=== PATIENT | female | born 1995 | race Caucasian/White ===

== ENCOUNTER 2023-11-05 16:31 | Emergency (ER) | payer BC, SELFPAY ==
[2023-11-05 16:56] VITALS: BP 122/62; PULSE 120; RESP 18; TEMP 37.7; O2SAT 99
--- NOTE | 2023-11-05 17:21 | ED.URI ---
HPI - URI/Sore Throat General Chief Complaint: Upper Respiratory Infection Stated Complaint: Cold symptoms Time Seen by Provider: 11/05/23 17:12 Source: patient and RN notes reviewed Mode of arrival: ambulatory Limitations: no limitations History of Present Illness HPI Narrative: Patient presents today with a one-week history of cough with sore throat, headache, fatigue, and postnasal drip since yesterday. Currently rates her pain 6/10 and has been taking ibuprofen with some slight relief. Related Data Allergies Allergy/AdvReac Type Severity Reaction Status Date / Time No Known Allergies Allergy Verified 11/05/23 17:00 Review of Systems Review of Systems: GENERAL: Denies fever, chills, or decreased activity.+ fatigue EYES: Denies any eye discharge or redness. ENT: Denies ear pain, congestion, or rhinorrhea.+ sore throat, postnasal drip RESP: Denies any wheezing, or difficulty breathing.+ cough CARDIOVASCULAR: Denies any rapid heart rate or cool extremities. ABDOMINAL: Denies any constipation, vomiting, diarrhea, or decreased food intake. : Denies any hematuria, foul smelling urine, or decreased urine frequency. SKIN: Denies any lesions, rashes, bruises. MUSCULOSKELETAL: Denies any pain or swelling. NEURO: Denies any lethargy, irritability, or seizures.+ headache PSYCH: Denies abnormal interaction with family and friends. PMFSH Comments At time of signature, I have reviewed and agree with nursing past medical, surgical, social and family history unless otherwise noted. Please see nursing chart for further information. There is no relevant family history pertinent to the presenting complaint Exam Narrative: GENERAL: Mildly ill-appearing, well-nourished, and in no acute distress. HEAD: Normocephalic, atraumatic. EYES: EOMI. No redness or drainage. Conjunctivae normal. ENT: Mucous membranes pink and moist. Nares clear. No rhinorrhea. TMs normal bilaterally. Throat erythematous and mildly edematous. Uvula midline. NECK: Normal AROM. Supple. No lymphadenopathy. CHEST: No respiratory distress. Clear to auscultation. HEART: Regular rate and rhythm. No murmur appreciated. EXTREMITIES: Normal range of motion. No edema. SKIN: Warm, dry, no rash. Capillary refill normal. Normal skin turgor. NEURO: No focal deficits. Alert and oriented x3. Gait steady. PSYCH: Normal affect. No signs of depression or anxiety. Course Course Level of Care: Express Care Visit Vital Signs Vital signs: Vital Signs Temperature 99.8 F H 11/05/23 16:56 Pulse Rate 120 H 11/05/23 16:56 Respiratory Rate 18 11/05/23 16:56 Blood Pressure 122/62 11/05/23 16:56 Pulse Oximetry 99 11/05/23 16:56 Oxygen Delivery Room Air 11/05/23 16:56 Temperature 99.8 F H 11/05/23 16:56 Pulse Rate 120 H 11/05/23 16:56 Respiratory Rate 18 11/05/23 16:56 Blood Pressure 122/62 11/05/23 16:56 Pulse Oximetry 99 11/05/23 16:56 Oxygen Delivery Room Air 11/05/23 16:56 Reviewed MDM - URI/Sore Throat MDM Narrative Medical decision making narrative: Rapid strep positive. Prescription for amoxicillin sent to pharmacy. Anticipatory guidance given. Differential Diagnosis Differential diagnosis: Likely upper respiratory infection, viral infection, bronchitis, pharyngitis and other (Strep throat) Lab Data Attestation: I reviewed the patient's lab results. Labs: Strep Screen Positive Group A Strep *(Reference Range: Negative)* Critical Care Time Critical Care Time Critical Care Time: No Discharge Plan Discharge Clinical Impression: Strep throat Patient Disposition: Home, Self-Care Condition: Stable Instructions: Antibiotic Form, Strep Throat (DC) Additional Instructions: You have tested positive for strep throat. Please take the amoxicillin as prescribed until gone. You will be contagious for 24 hours after starting the medication. Take
== END 2023-11-05 17:33 | disposition home or self-care (01) ==
PROVIDERS: Emergency Provider Nurse Practitioner
DX: J02.0 Streptococcal pharyngitis (principal)
CPT/HCPCS: 87880; 99213; G0463